=== PATIENT | female | born 1980 | race African-American/Black ===

== ENCOUNTER 2016-11-10 07:52 | Emergency (ER) | payer MEDICAID, OTHER ==
[~2016-11-10] VITALS: Ht 167.6 cm; Wt 68.0 kg
[~2016-11-10 07:52] MED LIST: ARIP15TA3 PO; DIVA500T52 PO; DIVA500T69 PO; FLUD25I IM; RISP3 PO
[2016-11-10] MEDS ORDERED: ONDANSETRON HCL 4 MG/2 ML VIAL IM ONE (08:30)
[2016-11-10] MEDS ORDERED: MORPHINE SULFATE 4 MG/ML SYRINGE IM ONE (08:30)
[2016-11-10 09:31] VITALS: BP 133/92
== END 2016-11-10 10:24 | disposition home or self-care (01) ==
LOC: EMS 07:54
DX: M79.1 Myalgia (principal); F17.210 Nicotine dependence, cigarettes, uncomplicated; F15.90 Other stimulant use, unspecified, uncomplicated; F12.90 Cannabis use, unspecified, uncomplicated; V89.2XXA Person injured in unspecified motor-vehicle accident, traffic, initial encounter; Y93.89 Activity, other specified; Y92.89 Other specified places as the place of occurrence of the external cause; Y99.8 Other external cause status
CPT/HCPCS: 96372; 99284; J2270; J2405

== ENCOUNTER 2016-11-16 08:32 | Inpatient (IN) | payer MEDICAID, OTHER ==
[~2016-11-16] VITALS: Ht 170.2 cm; Wt 60.3 kg
[2016-11-16 09:46] LABS: BASOPHILS % (AUTO) 2.7 % (0.0-2.0); EOSINOPHILS % (AUTO) 0.9 % (1.0-6.0); HEMATOCRIT 32.6 % (36-46); HEMOGLOBIN 10.2 g/dL (12.0-16.0); LYMPHOCYTES # (AUTO) 2.8 K/uL (1.0-4.8); LYMPHOCYTES % (AUTO) 32.2 % (22.0-44.0); MEAN CORPUSCULAR HEMOGLOBIN 27.4 pg (26.0-34.0); MEAN CORPUSCULAR HGB CONC 31.3 G/dL (31.0-37.0); MEAN CORPUSCULAR VOLUME 87 fL (80-100); MONOCYTES # (AUTO) 1.7 K/uL (0.1-1.0); MONOCYTES % (AUTO) 19.2 % (2.0-9.0); NEUTROPHILS # (AUTO) 3.9 K/uL (1.8-7.7); PLATELET COUNT (AUTO) 228 K/uL (150-450); RED BLOOD CELL COUNT(AUTO) 3.73 MIL/uL (4.00-5.20); RED CELL DISTRIBUTION WIDTH 17.6 % (11.5-14.5); WHITE BLOOD COUNT (AUTO) 8.7 K/uL (4.5-11.0)
[2016-11-16 10:01] LABS: ANION GAP 11 mmol/L (8-16); CALCIUM, TOTAL 8.8 mg/dL (8.8-10.5); CARBON DIOXIDE 24 mmol/L (22-29); CHLORIDE 105 mmol/L (98-107); CREATININE 0.77 mg/dL (0.60-1.30); GLOMERULAR FILTR. RATE CALC > 60 mL/min (>60); POTASSIUM 4.3 mmol/L (3.5-5.1); SODIUM SERUM 140 mmol/L (136-145); UREA NITROGEN, BLOOD 12 mg/dL (7-18)
[2016-11-16 10:06] LABS: ALANINE AMINOTRANSFERASE 29 U/L (12-78); ALBUMIN 3.3 g/dL (3.4-5.0); ASPARTATE AMINOTRANSFERASE 28 U/L (15-37); BILIRUBIN,TOTAL 0.5 mg/dL (0.1-1.0); TOTAL PROTEIN, SERUM 7.6 g/dL (6.4-8.2)
[2016-11-16 10:18] LABS: VALPROIC ACID < 3 mcg/mL (50-100)
[2016-11-16] MEDS ORDERED: HALOPERIDOL LACTATE 5 MG/ML VIAL IM ONE (10:45)
[2016-11-16] MEDS ORDERED: LORazepam 2 MG/ML VIAL IM ONE (10:45)
[2016-11-16] MEDS ORDERED: DiphenhydrAMINE HCL 50 MG/ML VIAL IM ONE (10:45)
[2016-11-16] MEDS ORDERED: HALOPERIDOL 5 MG TABLET PO PRN (11:15)
[2016-11-16 13:35] VITALS: BP 119/74
[2016-11-16] MEDS ORDERED: INFLUENZA VIRUS VACCINE QVS 2016-17 (3YR+)/PF 60 MCG/0.5 ML SYRINGE IM ONE (15:30)
[2016-11-16] MEDS: BACITRACIN 28.4 GM OINTMENT TP SCH (16:42)
[2016-11-16] MEDS: HALOPERIDOL 5 MG TABLET PO SCH (18:01)
[2016-11-16] MEDS: BENZTROPINE MESYLATE 0.5 MG TABLET PO SCH (18:01)
[2016-11-16 19:58] VITALS: BP 135/70
[2016-11-17 05:46] VITALS: BP 111/64
[2016-11-17 08:43] VITALS: BP 129/76
[2016-11-17] MEDS ORDERED: BENZ0.5T6 PO (10:29)
[2016-11-17] MEDS ORDERED: HALO5 PO (10:29)
[2016-11-17] MEDS: HALOPERIDOL 5 MG TABLET PO SCH ×2 (10:30→18:03)
[2016-11-17] MEDS: LORazepam 2 MG TABLET PO PRN (10:30)
[2016-11-17] MEDS: BENZTROPINE MESYLATE 0.5 MG TABLET PO SCH ×2 (10:30→18:04)
[2016-11-17] MEDS: BACITRACIN 28.4 GM OINTMENT TP SCH ×2 (10:30→18:04)
[2016-11-17] MEDS ORDERED: ACETAMINOPHEN 325 MG TABLET PO PRN (11:45)
[2016-11-17 16:53] VITALS: BP 132/81
[2016-11-17] MEDS: FERROUS SULFATE 325 MG EC TABLET PO SCH ×2 (18:03→21:26)
[2016-11-18] MEDS: LORazepam 2 MG TABLET PO PRN (00:55)
[2016-11-18] MEDS: ZOLPIDEM TARTRATE 10 MG TABLET PO PRN (00:55)
[2016-11-18] MEDS: FERROUS SULFATE 325 MG EC TABLET PO SCH ×4 (06:46→20:22)
[2016-11-18 08:00] VITALS: BP 125/76
[2016-11-18] MEDS: MULTIVITAMINS WITH MINERALS, THERAPEUTIC TABLET PO SCH (09:12)
[2016-11-18] MEDS: HALOPERIDOL 5 MG TABLET PO SCH ×2 (09:12→16:34)
[2016-11-18] MEDS: BENZTROPINE MESYLATE 0.5 MG TABLET PO SCH ×2 (09:14→16:34)
[2016-11-18] MEDS: BACITRACIN 28.4 GM OINTMENT TP SCH ×2 (09:15→16:34)
[2016-11-18 16:08] VITALS: BP 129/77
[2016-11-19] MEDS: ZOLPIDEM TARTRATE 10 MG TABLET PO PRN ×2 (02:58→20:24)
[2016-11-19] MEDS: LORazepam 2 MG TABLET PO PRN (02:58)
[2016-11-19] MEDS: FERROUS SULFATE 325 MG EC TABLET PO SCH ×4 (06:41→20:23)
[2016-11-19 08:00] VITALS: BP 109/54
[2016-11-19] MEDS: BENZTROPINE MESYLATE 0.5 MG TABLET PO SCH ×2 (08:07→16:21)
[2016-11-19] MEDS: MULTIVITAMINS WITH MINERALS, THERAPEUTIC TABLET PO SCH (08:07)
[2016-11-19] MEDS: HALOPERIDOL 5 MG TABLET PO SCH ×2 (08:08→16:21)
[2016-11-19] MEDS: BACITRACIN 28.4 GM OINTMENT TP SCH ×2 (09:38→16:21)
[2016-11-19 12:02] LABS: APPEARANCE,URINE CLEAR (CLEAR); GLUCOSE, URINE (UA) NEGATIVE (NEGATIVE); KETONES,URINE NEGATIVE (NEGATIVE); LEUKOCYTE ESTERASE ,URINE MODERATE (NEGATIVE); OCCULT BLOOD,URINE TRACE (NEGATIVE); PROTEIN,URINE NEGATIVE (NEGATIVE)
[2016-11-19 12:04] LABS: ADD UA MICROSCOPIC YES
[2016-11-19 12:08] LABS: SQUAMOUS EPITHELIAL CELL,UR Few /LPF (None Seen); WBC,URINE 26-50 /HPF (0-5)
[2016-11-19] MEDS: CIPROFLOXACIN HCL 500 MG TABLET PO SCH (16:20)
[2016-11-20] MEDS: FERROUS SULFATE 325 MG EC TABLET PO SCH ×4 (06:39→20:32)
[2016-11-20 08:14] VITALS: BP 122/82
[2016-11-20] MEDS: BENZTROPINE MESYLATE 0.5 MG TABLET PO SCH ×2 (08:29→16:31)
[2016-11-20] MEDS: HALOPERIDOL 5 MG TABLET PO SCH ×2 (08:29→16:31)
[2016-11-20] MEDS: CIPROFLOXACIN HCL 500 MG TABLET PO SCH ×2 (08:29→16:31)
[2016-11-20] MEDS: MULTIVITAMINS WITH MINERALS, THERAPEUTIC TABLET PO SCH (08:29)
[2016-11-20] MEDS: BACITRACIN 28.4 GM OINTMENT TP SCH ×2 (09:00→16:32)
[2016-11-20] MEDS: LORazepam 2 MG TABLET PO PRN (10:00)
[2016-11-21] MEDS: FERROUS SULFATE 325 MG EC TABLET PO SCH (06:34)
[2016-11-21] MEDS: MULTIVITAMINS WITH MINERALS, THERAPEUTIC TABLET PO SCH (08:16)
[2016-11-21] MEDS: CIPROFLOXACIN HCL 500 MG TABLET PO SCH (08:16)
[2016-11-21] MEDS: BENZTROPINE MESYLATE 0.5 MG TABLET PO SCH (08:17)
[2016-11-21 08:35] VITALS: BP 135/71
[2016-11-21] MEDS ORDERED: HALOPERIDOL 10 MG TABLET PO SCH (09:00)
[2016-11-21] MEDS: BACITRACIN 28.4 GM OINTMENT TP SCH (09:00)
[2016-11-21] MEDS ORDERED: CIPR-278 PO (11:24)
[2016-11-21] MEDS ORDERED: FERR-89 PO (11:25)
== END 2016-11-21 12:15 | disposition home or self-care (01) | DRG 751 ==
LOC: EEVIPCON 08:33 → EMS 08:33 → B3A 12:30 → 3EC 20:02
PROVIDERS: ADMIT Psychiatry & Neurology Psychiatry; ATTEND Psychiatry & Neurology Psychiatry
DX: F29 Unspecified psychosis not due to a substance or known physiological condition (principal); F20.0 Paranoid schizophrenia; F15.10 Other stimulant abuse, uncomplicated; Z59.0 Homelessness; F12.90 Cannabis use, unspecified, uncomplicated; F17.201 Nicotine dependence, unspecified, in remission; D64.9 Anemia, unspecified; S90.912A Unspecified superficial injury of left ankle, initial encounter; X58.XXXA Exposure to other specified factors, initial encounter; S90.821A Blister (nonthermal), right foot, initial encounter; Y93.89 Activity, other specified; Z91.83 Wandering in diseases classified elsewhere; Z79.899 Other long term (current) drug therapy; Y92.89 Other specified places as the place of occurrence of the external cause; Y99.8 Other external cause status; Z28.21 Immunization not carried out because of patient refusal
CPT/HCPCS: 87081; 87086; 96372; 99285; G0480; J1200; J1630; J2060

== ENCOUNTER 2020-03-23 18:35 | Emergency (ER) | payer SELFPAY ==
[~2020-03-23] VITALS: Ht 170.2 cm; Wt 68.2 kg
[~2020-03-23 18:35] MED LIST changes: -ARIP15TA3 PO; +BENZ0.5T44 PO; +CIPR-278 PO; -DIVA500T52 PO; -DIVA500T69 PO; +FERR-89 PO; -FLUD25I IM; +HALO5TAB2 PO; -RISP3 PO
[2020-03-23 18:41] VITALS: BP 141/87
== END 2020-03-23 19:15 | disposition left against medical advice (07) ==
LOC: EMS 18:35
DX: S91.302A Unspecified open wound, left foot, initial encounter (principal); F17.210 Nicotine dependence, cigarettes, uncomplicated; F15.90 Other stimulant use, unspecified, uncomplicated; F12.90 Cannabis use, unspecified, uncomplicated; X58.XXXA Exposure to other specified factors, initial encounter; Y93.89 Activity, other specified; Y92.89 Other specified places as the place of occurrence of the external cause; Y99.8 Other external cause status
CPT/HCPCS: Z7502

== ENCOUNTER 2020-05-30 20:40 | Inpatient (IN) | payer MEDICAID ==
[~2020-05-30] VITALS: Ht 170.2 cm; Wt 56.8 kg
[~2020-05-30 20:40] MED LIST changes: -CIPR-278 PO
[2020-05-30 21:39] LABS: GLUCOSE,POINT OF CARE 111 MG/DL (70-110)
[2020-05-30 22:00] LABS: BASOPHILS % (AUTO) 0.4 % (0.0-2.0); EOSINOPHILS % (AUTO) 0.8 % (1.0-6.0); HEMATOCRIT 37.1 % (36-46); HEMOGLOBIN 11.8 g/dL (12.0-16.0); LYMPHOCYTES # (AUTO) 1.1 K/uL (1.0-4.8); LYMPHOCYTES % (AUTO) 11.1 % (22.0-44.0); MEAN CORPUSCULAR HEMOGLOBIN 26.8 pg (26.0-34.0); MEAN CORPUSCULAR HGB CONC 31.9 G/dL (31.0-37.0); MEAN CORPUSCULAR VOLUME 84 fL (80-100); MONOCYTES # (AUTO) 1.4 K/uL (0.1-1.0); MONOCYTES % (AUTO) 13.2 % (2.0-9.0); NEUTROPHILS # (AUTO) 7.6 K/uL (1.8-7.7); NEUTROPHILS % (AUTO) 74.5 % (40.0-70.0); PLATELET COUNT (AUTO) 235 K/uL (150-450); RED BLOOD CELL COUNT(AUTO) 4.42 MIL/uL (4.00-5.20); RED CELL DISTRIBUTION WIDTH 17.7 % (11.5-14.5)
[2020-05-30 22:15] LABS: SALICYLATE < 2.8 mg/dL (2.8-20.0)
[2020-05-30 22:22] LABS: ALANINE AMINOTRANSFERASE 28 U/L (12-78); ALBUMIN 3.7 g/dL (3.4-5.0); ALKALINE PHOSPHATASE 72 U/L (46-116); ANION GAP 6 mmol/L (8-16); ASPARTATE AMINOTRANSFERASE 22 U/L (15-37); BILIRUBIN,TOTAL 0.6 mg/dL (0.1-1.0); CALCIUM, TOTAL 9.3 mg/dL (8.8-10.5); CARBON DIOXIDE 31 mmol/L (22-29); CHLORIDE 100 mmol/L (98-107); CREATININE 0.86 mg/dL (0.60-1.30); GLOMERULAR FILTR. RATE CALC > 60 mL/min (>60); GLUCOSE,RANDOM 69 mg/dL (70-110); HCG,QUANTITATIVE 1 mIU/mL (0-6); LIPASE 145 U/L (73-393); POTASSIUM 3.3 mmol/L (3.5-5.1); SODIUM SERUM 137 mmol/L (136-145); TOTAL PROTEIN, SERUM 8.2 g/dL (6.4-8.2); UREA NITROGEN, BLOOD 13 mg/dL (7-18)
[2020-05-30 22:30] LABS: LACTIC ACID 3.5 mmol/L (0.4-2.0)
[2020-05-30 22:31] LABS: ACETAMINOPHEN < 2 mcg/mL (10-30)
[2020-05-30] MEDS ORDERED: SODIUM CHLORIDE 0.9% 1,650 ML IV ONE (22:37)
[2020-05-30 23:47] LABS: APPEARANCE,URINE CLOUDY (CLEAR); BILIRUBIN,URINE NEGATIVE (NEGATIVE); GLUCOSE, URINE (UA) NEGATIVE (NEGATIVE); KETONES,URINE NEGATIVE (NEGATIVE); LEUKOCYTE ESTERASE ,URINE SMALL (NEGATIVE); NITRATE,URINE NEGATIVE (NEGATIVE); OCCULT BLOOD,URINE LARGE (NEGATIVE); PH,URINE 7.5 (5.0-8.0); PROTEIN,URINE NEGATIVE (NEGATIVE)
[2020-05-30 23:54] LABS: AMPHET/METH SCREEN,URINE POSITIVE (NEGATIVE); BARBITURATE SCREEN, URINE NEGATIVE (NEGATIVE); BENZODIAZEPINES SCREEN,URINE NEGATIVE (NEGATIVE); CANNABINOID SCREEN,URINE NEGATIVE (NEGATIVE); COCAINE SCREEN,URINE NEGATIVE (NEGATIVE); METHADONE SCREEN, URINE NEGATIVE (NEGATIVE); OPIATE SCREEN,URINE NEGATIVE (NEGATIVE)
[2020-05-30 23:55] LABS: PHENCYCLIDINE SCREEN,URINE NEGATIVE (NEGATIVE)
[2020-05-31 00:05] LABS: BACTERIA,URINE Moderate /HPF (None Seen); RBC,URINE Full Field /HPF (0-2); SQUAMOUS EPITHELIAL CELL,UR Few /LPF (None Seen)
[2020-05-31] MEDS ORDERED: ACETAMINOPHEN 1000 MG/ISO-OSM 100 ML IV ONE (01:30)
[2020-05-31] MEDS ORDERED: CefTRIAXone 1 GM/DEXTROSE 50 ML IV ONE (01:30)
[2020-05-31 01:43] LABS: GLUCOSE,POINT OF CARE 95 MG/DL (70-110)
[2020-05-31] MEDS ORDERED: ONDANSETRON HCL 4 MG/2 ML VIAL IVP PRN ×2 (01:45→04:15)
[2020-05-31] MEDS ORDERED: ACETAMINOPHEN 325 MG TABLET PO PRN (01:45)
[2020-05-31] MEDS ORDERED: 0.9% SODIUM CHLORIDE 10 ML SYRINGE IVP PRN (01:45)
[2020-05-31 03:22] VITALS: BP 137/97
[2020-05-31] MEDS: FAMOTIDINE 10 MG/ML 2 ML VIAL IVP SCH ×2 (04:58→22:03)
[2020-05-31] MEDS: 1: MAGNESIUM SULFATE 2 GM, MVI, ADULT NO.1 WITH VIT K 10 ML, THIAMINE 100 MG, FOLIC ACID IV SCH ×10 (04:58→16:19)
[2020-05-31] MEDS ORDERED: POTASSIUM CHL 20 MEQ/0.9% NS 1,000 ML IV SCH (05:00)
[2020-05-31 05:38] VITALS: BP 141/95
[2020-05-31] MEDS ORDERED: DEXTROSE 50%-WATER 25 GM/50 ML SYRINGE IVP ONE (06:00)
[2020-05-31 06:34] LABS: GLUCOMETER DEV NAME(LOC) 4E.2; GLUCOSE,POINT OF CARE 80 MG/DL (70-110)
[2020-05-31] MEDS: RINGERS SOLUTION,LACTATED 1,000 ML IV SCH ×2 (08:21→18:04)
[2020-05-31] MEDS: HEPARIN SODIUM,PORCINE 5,000 UNITS/ML VIAL SQ SCH ×3 (08:21→23:18)
[2020-05-31] MEDS ORDERED: HALO10 PO (12:49)
[2020-05-31 13:09] VITALS: BP 135/87
[2020-05-31] MEDS: PANTOPRAZOLE SODIUM 40 MG DR TABLET PO SCH (13:09)
[2020-05-31 15:25] VITALS: BP 122/66
[2020-05-31] MEDS ORDERED: SODIUM CHLORIDE 0.9% 1,000 ML ONE (16:08)
[2020-05-31 20:47] VITALS: BP 121/77
[2020-05-31 23:19] VITALS: BP 122/85
[2020-06-01] MEDS: CefTRIAXone 1 GM/DEXTROSE 50 ML IV SCH (02:24)
[2020-06-01] MEDS: 1: MAGNESIUM SULFATE 2 GM, MVI, ADULT NO.1 WITH VIT K 10 ML, THIAMINE 100 MG, FOLIC ACID IV SCH ×10 (02:24→13:35)
[2020-06-01 03:59] VITALS: BP 133/91
[2020-06-01 07:06] LABS: BASOPHILS % (AUTO) 0.2 % (0.0-2.0); EOSINOPHILS % (AUTO) 2.3 % (1.0-6.0); HEMATOCRIT 37.1 % (36-46); HEMOGLOBIN 12.1 g/dL (12.0-16.0); LYMPHOCYTES # (AUTO) 1.8 K/uL (1.0-4.8); LYMPHOCYTES % (AUTO) 35.5 % (22.0-44.0); MEAN CORPUSCULAR HGB CONC 32.6 G/dL (31.0-37.0); MEAN CORPUSCULAR VOLUME 83 fL (80-100); MONOCYTES # (AUTO) 0.6 K/uL (0.1-1.0); MONOCYTES % (AUTO) 11.8 % (2.0-9.0); NEUTROPHILS # (AUTO) 2.5 K/uL (1.8-7.7); NEUTROPHILS % (AUTO) 50.2 % (40.0-70.0); PLATELET COUNT (AUTO) 263 K/uL (150-450); RED BLOOD CELL COUNT(AUTO) 4.47 MIL/uL (4.00-5.20); RED CELL DISTRIBUTION WIDTH 18.1 % (11.5-14.5)
[2020-06-01 07:15] LABS: ANION GAP 4 mmol/L (8-16); CALCIUM, TOTAL 8.3 mg/dL (8.8-10.5); CARBON DIOXIDE 30 mmol/L (22-29); CHLORIDE 104 mmol/L (98-107); CREATININE 0.83 mg/dL (0.60-1.30); GLOMERULAR FILTR. RATE CALC > 60 mL/min (>60); GLUCOSE,RANDOM 99 mg/dL (70-110); SODIUM SERUM 138 mmol/L (136-145); UREA NITROGEN, BLOOD 9 mg/dL (7-18)
[2020-06-01 08:09] VITALS: BP 130/80
[2020-06-01] MEDS: HEPARIN SODIUM,PORCINE 5,000 UNITS/ML VIAL SQ SCH ×2 (08:49→15:54)
[2020-06-01] MEDS: FAMOTIDINE 10 MG/ML 2 ML VIAL IVP SCH ×2 (08:49→20:15)
[2020-06-01] MEDS: PANTOPRAZOLE SODIUM 40 MG DR TABLET PO SCH (08:49)
[2020-06-01 11:42] VITALS: BP 134/82
[2020-06-01 15:58] VITALS: BP 126/75
[2020-06-01 20:25] VITALS: BP 131/84
[2020-06-02] MEDS: HEPARIN SODIUM,PORCINE 5,000 UNITS/ML VIAL SQ SCH ×2 (00:14→07:53)
[2020-06-02] MEDS: 1: MAGNESIUM SULFATE 2 GM, MVI, ADULT NO.1 WITH VIT K 10 ML, THIAMINE 100 MG, FOLIC ACID IV SCH ×5 (00:14)
[2020-06-02 00:55] VITALS: BP 143/82
[2020-06-02] MEDS: CefTRIAXone 1 GM/DEXTROSE 50 ML IV SCH (02:02)
[2020-06-02 04:47] VITALS: BP 129/84
[2020-06-02 05:54] LABS: ANION GAP 4 mmol/L (8-16); BASOPHILS % (AUTO) 0.7 % (0.0-2.0); CALCIUM, TOTAL 8.2 mg/dL (8.8-10.5); CARBON DIOXIDE 28 mmol/L (22-29); CHLORIDE 104 mmol/L (98-107); CREATININE 0.79 mg/dL (0.60-1.30); EOSINOPHILS % (AUTO) 1.5 % (1.0-6.0); GLOMERULAR FILTR. RATE CALC > 60 mL/min (>60); GLUCOSE,RANDOM 134 mg/dL (70-110); HEMATOCRIT 37.4 % (36-46); LYMPHOCYTES # (AUTO) 1.9 K/uL (1.0-4.8); LYMPHOCYTES % (AUTO) 37.9 % (22.0-44.0); MEAN CORPUSCULAR HEMOGLOBIN 26.9 pg (26.0-34.0); MEAN CORPUSCULAR HGB CONC 32.2 G/dL (31.0-37.0); MEAN CORPUSCULAR VOLUME 84 fL (80-100); MONOCYTES # (AUTO) 0.5 K/uL (0.1-1.0); MONOCYTES % (AUTO) 10.5 % (2.0-9.0); NEUTROPHILS # (AUTO) 2.4 K/uL (1.8-7.7); NEUTROPHILS % (AUTO) 49.4 % (40.0-70.0); PLATELET COUNT (AUTO) 260 K/uL (150-450); POTASSIUM 3.9 mmol/L (3.5-5.1); RED BLOOD CELL COUNT(AUTO) 4.47 MIL/uL (4.00-5.20); RED CELL DISTRIBUTION WIDTH 17.7 % (11.5-14.5); SODIUM SERUM 136 mmol/L (136-145); UREA NITROGEN, BLOOD 11 mg/dL (7-18)
[2020-06-02] MEDS: PANTOPRAZOLE SODIUM 40 MG DR TABLET PO SCH (07:52)
[2020-06-02] MEDS: FAMOTIDINE 10 MG/ML 2 ML VIAL IVP SCH (07:53)
[2020-06-02 09:05] VITALS: BP 128/76
== END 2020-06-02 11:50 | disposition left against medical advice (07) | DRG 871 ==
LOC: EMS 20:41 → 5S 05-31 02:22 → UNDOADMIN 05-31 02:22 → 6N 05-31 03:35 → 5S 05-31 04:03 → 6N 05-31 05:20 → 5S 05-31 05:20 → 6N 06-01 10:43 → 4E 06-02 10:10
PROVIDERS: ADMIT Internal Medicine; ATTEND Internal Medicine
DX: A41.9 Sepsis, unspecified organism (principal); G92 Toxic encephalopathy; N39.0 Urinary tract infection, site not specified; F20.0 Paranoid schizophrenia; F15.10 Other stimulant abuse, uncomplicated; Z20.828 Contact with and (suspected) exposure to other viral communicable diseases; F17.210 Nicotine dependence, cigarettes, uncomplicated; Z59.0 Homelessness
CPT/HCPCS: 70450; 72125; 82948; 83605; 83735; 84443; 87040; 87086; 87426; 93005; G0480; G0481; J0131; J0696; J1644; J3411; J3475; J3480; J3490; J7030; J7120; 36415-L1; 36415-TC; 71045-TC

== ENCOUNTER 2021-09-29 04:25 | Emergency (ER) | payer MEDICAID, OTHER ==
[~2021-09-29] VITALS: Ht 172.7 cm; Wt 65.5 kg
[~2021-09-29 04:25] MED LIST changes: +HALO10 PO; -HALO5TAB2 PO
[2021-09-29] MEDS ORDERED: ACETAMINOPHEN 325 MG TABLET PO ONE (06:15)
[2021-09-29 06:16] VITALS: BP 145/90
== END 2021-09-29 06:20 | disposition home or self-care (01) ==
LOC: EMS 04:29
DX: R51.9 Headache, unspecified (principal); R03.0 Elevated blood-pressure reading, without diagnosis of hypertension; F31.9 Bipolar disorder, unspecified; F20.9 Schizophrenia, unspecified; F12.90 Cannabis use, unspecified, uncomplicated; F15.90 Other stimulant use, unspecified, uncomplicated; F17.210 Nicotine dependence, cigarettes, uncomplicated; Z79.899 Other long term (current) drug therapy
CPT/HCPCS: 99282

== ENCOUNTER 2021-10-14 18:05 | Emergency (ER) | payer OTHER | END 2021-10-14 19:27 | disposition left against medical advice (07) | LOC: EMS 18:07 | DX: Z00.00 Encounter for general adult medical examination without abnormal findings (principal); Z53.21 Procedure and treatment not carried out due to patient leaving prior to being seen by health care provider ==

== ENCOUNTER 2021-12-03 06:27 | Emergency (ER) | payer OTHER ==
[~2021-12-03] VITALS: Ht 172.7 cm; Wt 56.8 kg
[2021-12-03 07:02] VITALS: BP 150/100
== END 2021-12-03 09:05 | disposition home or self-care (01) ==
LOC: EMS 06:30
DX: R09.81 Nasal congestion (principal); J02.9 Acute pharyngitis, unspecified; F31.9 Bipolar disorder, unspecified; F20.9 Schizophrenia, unspecified; F17.210 Nicotine dependence, cigarettes, uncomplicated; F12.90 Cannabis use, unspecified, uncomplicated
CPT/HCPCS: 99281; Z7502

== ENCOUNTER 2021-12-03 19:34 | Emergency (ER) | payer OTHER ==
[~2021-12-03] VITALS: Ht 167.6 cm; Wt 56.9 kg
[2021-12-03 19:40] VITALS: BP 138/78
== END 2021-12-03 20:00 | disposition left against medical advice (07) ==
LOC: EMS 19:36
DX: F29 Unspecified psychosis not due to a substance or known physiological condition (principal); Z53.21 Procedure and treatment not carried out due to patient leaving prior to being seen by health care provider